=== PATIENT | male | born 1985 | race Caucasian/White ===

== ENCOUNTER 2016-09-15 21:10 | Emergency (ER) | payer OTHER ==
[2016-09-15 22:19] LABS: HEMOGLOBIN 15.3 gm/dl (14.0-17.5); RED BLOOD COUNT 4.78 M/UL (4.20-5.50); WHITE BLOOD COUNT 16.5 K/UL (4.5-11.0)
[2016-09-15 22:42] LABS: BUN/CREATININE RATIO 17 (0-10)
== END 2016-09-16 07:25 | disposition short-term general hospital (02) ==
LOC: ER1 21:10
PROVIDERS: Specialist/Technologist Athletic Trainer
DX: R56.9 Unspecified convulsions (principal); E87.6 Hypokalemia; R73.9 Hyperglycemia, unspecified; Z88.0 Allergy status to penicillin
CPT/HCPCS: 36415; 70450; 80053; 80307; 82550; 82962; 85025; 93005; 96361; 96374; 99285; J2060